=== PATIENT | male | born 1955 | race Caucasian/White ===

== ENCOUNTER 2022-02-14 18:22 | Emergency (ER) | payer MEDICARE ==
[2022-02-14] MEDS ORDERED: Sodium Chloride 0.9% 1,000 ML ONE (18:45)
[2022-02-14] MEDS ORDERED: Ketorolac Tromethamine 30 MG/ML VIAL ONE (18:45)
[2022-02-14 18:48] LABS: #Basophils 0.1 thou/uL (0.0-0.2); #Eosinphils 0.1 thou/uL (0.0-0.7); #Lymphocytes 0.4 thou/uL (1.20-3.40); #Monocytes 0.2 thou/uL (0.11-0.59); #Neutrophils 4.9 thou/uL (1.40-6.50); %Basophils 1.9 % (0.0-1.0); %Eosinophils 1.4 % (0.0-10.0); %Lymphocytes 6.4 % (21.0-51.0); %Monocytes 3.6 % (0.0-10.0); %Neutrophils 86.7 % (42.0-75.0); Hemoglobin 14.4 g/dL (14.0-18.0); Mean Corpuscular HGB CONC 33.7 g/dL (32.0-36.0); Mean Corpuscular Hemoglobin 31.8 pg (27.0-31.0); Mean Corpuscular Volume 94.4 fl (78.0-98.0); Mean Platelet Volume 8.7 fL (7.4-10.4); Platelet Count 161 10x3/uL (130-400); RBC Distribution Width 11.5 % (11.5-14.5); Red Blood Cell (RBC) Count 4.54 mill/uL (4.70-6.10); White Blood Cell (WBC) Count 5.6 10x3/uL (4.8-10.8)
[2022-02-14 19:03] LABS: ALT (SGPT) 63 U/L (8-55); AST (SGOT) 76 U/L (5-34); Albumin 3.7 g/dL (3.4-4.8); Alkaline Phosphatase 92 U/L (40-110); Anion Gap 17 mmol/L (10-20); BUN (Urea Nitrogen) 31 mg/dL (8.4-25.7); Bilirubin, Total 0.7 mg/dL (0.2-1.2); Calc. Creatinine Clearance 0 mL/min (70-130); Calcium 9.3 mg/dL (7.8-10.44); Carbon Dioxide 20 mmol/L (23-31); Chloride 102 mmol/L (98-107); Estimated GFR 35; Glucose 158 mg/dL (80-115); Magnesium 1.7 mg/dL (1.6-2.6); Potassium 2.7 mmol/L (3.5-5.1); Protein, Total 6.7 g/dL (5.8-8.1); Sodium 136 mmol/L (136-145)
[2022-02-14] MEDS ORDERED: Sodium Chloride 0.9% 100 ML ONE (19:24)
[2022-02-14] MEDS ORDERED: NS 0.9% w/ 40 MEQ KCL 1,000 ML IV ONE (19:24)
[2022-02-14] MEDS ORDERED: cefTRIAXone\\ROCEPHIN 1 GM VIAL ONE (19:24)
[2022-02-14] MEDS ORDERED: Sodium Chloride 0.9% 250 ML 250 ML ONE (19:27)
[2022-02-14 19:35] LABS: CKMB 0.5 ng/mL (0-6.6)
[2022-02-14 19:44] LABS: SARS-CoV-2 NAA Rapid Test Not Detected (NotDetected)
[2022-02-14 20:33] LABS: Bilirubin Negative (Negative); Blood, Urine Moderate (Negative); Clarity Clear (Clear); Glucose, Urine (Dipstick) Negative (Negative); Ketone, Urine Negative (Negative); Leukocyte Negative (Negative); Nitrite Negative (Negative); Protein, Urine (Dipstick) 100 mg/dL (Neg-Trace); Specific Gravity, Urine 1.025 (1.005-1.030); Urobilinogen 0.2 mg/dL (Less than 2); pH, Urine 5.5 (5.0-9.0)
[2022-02-14 20:37] LABS: Squamous Epithelial 0-3 HPF (0-3); WBC/HPF None Seen HPF (0-3)
== END 2022-02-14 22:23 | disposition short-term general hospital (02) ==
LOC: MADERS 18:22
DX: A41.9 Sepsis, unspecified organism (principal); N17.9 Acute kidney failure, unspecified; E87.6 Hypokalemia; R77.8 Other specified abnormalities of plasma proteins; E78.5 Hyperlipidemia, unspecified; I10 Essential (primary) hypertension; Z20.822 Contact with and (suspected) exposure to COVID-19; Z79.899 Other long term (current) drug therapy
CPT/HCPCS: 0240U; 71045; 80053; 82553; 83605; 83735; 83880; 84484; 85025; 87040; 87077; 87086; 87149 ×2; 87186; 93005; 36415; 51701; 81003; 81015; 96365; 96367; 96375; J0696; J1885; J3370; J3480; J3490; J7050